=== PATIENT | male | born 1990 | race Two or more races ===

== ENCOUNTER 2017-03-24 01:20 | Emergency (ER) | payer OTHER ==
[~2017-03-24] VITALS: Ht 172.7 cm; Wt 95.3 kg
[2017-03-24 01:27] VITALS: BP 134/71
== END 2017-03-24 02:07 | disposition home or self-care (01) ==
LOC: ER 01:22
DX: R00.2 Palpitations (principal); F43.9 Reaction to severe stress, unspecified; F41.9 Anxiety disorder, unspecified; F17.210 Nicotine dependence, cigarettes, uncomplicated
CPT/HCPCS: A4606; Z7610

== ENCOUNTER 2022-08-15 14:15 | Emergency (ER) | payer SELFPAY ==
[~2022-08-15] VITALS: Ht 167.6 cm; Wt 86.2 kg
[2022-08-15 14:31] VITALS: BP 141/88
--- NOTE | 2022-08-15 14:40 | NUR ---
Benjy borja in [facility] - 08/15/22 at 1441 by MALOU T[address]EN TO [address] VIA [place]
== END 2022-08-15 15:28 | disposition home or self-care (01) ==
LOC: ER 14:20
DX: L05.91 Pilonidal cyst without abscess (principal); F41.9 Anxiety disorder, unspecified; F17.200 Nicotine dependence, unspecified, uncomplicated